=== PATIENT | male | born 1955 | race Caucasian/White ===

== ENCOUNTER 2025-06-18 15:55 | Emergency (ER) | payer MEDICARE, SELFPAY ==
[2025-06-18] VITALS (10 sets, daily range): BP systolic 140–184; BP diastolic 59–83; PULSE 66–77; RESP 15–20; TEMP 36.7; O2SAT 94–98; BMI 28.8
--- NOTE | 2025-06-18 16:12 | CT_ITS ---
PROCEDURE INFORMATION: Exam: CT Head Without Contrast Exam date and time: 06/18/2025 5:21 PM Age: 69 years old Clinical indication: Dizziness; Additional info: Dizziness, possible posterior circulation issue TECHNIQUE: Imaging protocol: Computed tomography of the head without contrast. Radiation optimization: All CT scans at this facility use at least one of these dose optimization techniques: automated exposure control; mA and/or kV adjustment per patient size (includes targeted exams where dose is matched to clinical indication); or iterative reconstruction. COMPARISON: CT ANGIO HEAD 06/18/2025 5:21 PM FINDINGS: Brain: No intraparenchymal hemorrhage. No subdural or epidural hematoma or fluid collection. Mild decreased density is present within the periventricular deep white matter. These changes are nonspecific and more in keeping with areas of chronic microvascular ischemic change. No evidence of a prior large territorial infarct. Mild decreased density is present within the posterior limb of the internal capsule on the right and left. Findings are somewhat nonspecific and may correspond to chronic microvascular ischemic change. Areas of slight asymmetric decreased density within the central left cerebellum. Findings may correspond to chronic microvascular ischemic change or potential area of subacute ischemia. Cerrato-white matter differentiation is relatively well-maintained. Cerebral ventricles: Ventricular and sulcal pattern within normal limits. Ventricles are midline in position. No mass effect or midline shift. There is mild prominence of the cerebellar folia which may correspond to mild cerebellar volume loss. Paranasal sinuses: Paranasal sinuses are clear. Mastoid air cells: Mastoid air cells are clear. Teeth: Partial visualization of multiple dental caries involving the posterior right and left maxillary molars. Bones: The calvarium is intact. No depressed or displaced skull fracture. Soft tissues: Small 4 mm metallic foreign body is present within the subcutaneous soft tissues superficial to the right frontal bone. Vasculature: No hyperdense MCA sign. Peripheral atherosclerotic plaque along the intracranial segment of the right and left internal carotid artery. IMPRESSION: 1. Area of slight decreased density within the central aspect of the left cerebellum is somewhat nonspecific. Findings could correspond to senescent change or microvascular ischemic change. Small area of subacute ischemia is not fully excluded. No other evidence of a large territorial infarct. No intraparenchymal hemorrhage. No subdural or epidural hematoma or fluid collection. No large mass or mass effect. 2. There is mild prominence of the cerebellar folia which may correspond to mild cerebellar volume loss. Ventricular and sulcal pattern is otherwise within normal limits. 3. Small 4 mm metallic foreign body is present within the subcutaneous soft tissues superficial to the right frontal bone. COMMENTS: THIS REPORT CONTAINS FINDINGS THAT MAY BE CRITICAL TO PATIENT CARE. The exam findings were verbally communicated by me to Steve Stanford via telephone conference at 5:54 PM EST on 06/18/2025. The findings were acknowledged and understood.
--- NOTE | 2025-06-18 16:12 | CT_ITS ---
PROCEDURE INFORMATION: Exam: CTA Head With Contrast, Arteriography Exam date and time: 06/18/2025 5:21 PM Age: 69 years old Clinical indication: Dizziness and giddiness; Additional info: Dizziness, possible posterior circulation issue TECHNIQUE: Imaging protocol: Computed tomographic angiography of the head with contrast. Exam focused on the arteries. 3D rendering (Not supervised by radiologist): MIP and/or 3D reconstructed images were created by the technologist. Radiation optimization: All CT scans at this facility use at least one of these dose optimization techniques: automated exposure control; mA and/or kV adjustment per patient size (includes targeted exams where dose is matched to clinical indication); or iterative reconstruction. Contrast material: ISOVUE 370; Contrast volume: 80 ml; Contrast route: INTRAVENOUS (IV); COMPARISON: CT HEAD/BRAIN WO CON 06/18/2025 5:21 PM FINDINGS: ANTERIOR CIRCULATION: Right internal carotid artery: Atherosclerotic changes are visualized of the right internal carotid artery, without significant intracranial stenosis or occlusion. Right middle cerebral artery: No occlusion or significant stenosis. No aneurysm. Right anterior cerebral artery: No occlusion or significant stenosis. No aneurysm. Left internal carotid artery: Atherosclerotic changes are visualized of the left internal carotid artery, with mild stenosis. Left middle cerebral artery: No occlusion or significant stenosis. No aneurysm. Left anterior cerebral artery: No occlusion or significant stenosis. No aneurysm. POSTERIOR CIRCULATION: Right vertebral artery: No occlusion or significant stenosis. No aneurysm. Left vertebral artery: No occlusion or significant stenosis. No aneurysm. Basilar artery: The basilar artery is small in caliber, without occlusion. No visualized aneurysm. Right posterior cerebral artery: Persistence of the origin of the right PLANIMETER OPERATOR, without significant stenosis or occlusion. 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 No significant stenosis or occlusion of the remaining left PLANIMETER OPERATOR. There is persistence of the origin of the PLANIMETER OPERATOR. Brain: There is mild prominence of sulci, compatible with atrophy. No intracranial mass effect is visualized. Refer to the head CT report from the same day. Cerebral ventricles: No ventriculomegaly. Orbital cavities: Bilateral orbital lens implants. Bones/joints: No acute fracture. Soft tissues: A small hyperdense foreign body is identified involving the right frontal scalp. IMPRESSION: 1. No large vessel arterial occlusion on this CTA head. 2. Atherosclerotic changes are visualized of the left internal carotid artery, with mild stenosis. 3. Additional findings described above.
--- NOTE | 2025-06-18 16:12 | CT_ITS ---
PROCEDURE INFORMATION: Exam: CTA Neck With Contrast Exam date and time: 06/18/2025 5:21 PM Age: 69 years old Clinical indication: Dizziness and giddiness; Additional info: Dizziness, possible posterior circulation issue TECHNIQUE: Imaging protocol: Computed tomographic angiography of the neck with contrast. Exam focused on the cervical segments of the vasculature. 3D rendering (Not supervised by radiologist): MIP and/or 3D reconstructed images were created by the technologist. Radiation optimization: All CT scans at this facility use at least one of these dose optimization techniques: automated exposure control; mA and/or kV adjustment per patient size (includes targeted exams where dose is matched to clinical indication); or iterative reconstruction. Contrast material: ISOVUE 370; Contrast volume: 80 ml; Contrast route: INTRAVENOUS (IV); COMPARISON: CT ANGIO NECK 06/18/2025 5:21 PM FINDINGS: Right common carotid artery: Atherosclerosis and noncalcified plaque are visualized involving the right common carotid artery.Artifact limits evaluation of the proximal right common carotid artery, without occlusion. No significant stenosis or occlusion of the remaining right common carotid artery. Right internal carotid artery: Atherosclerotic changes are visualized involving the proximal right internal carotid artery, with less than 50% stenosis. Right external carotid artery: No occlusion or significant stenosis. Left common carotid artery: Moderate stenosis of the proximal left common carotid artery, with atherosclerosis. Additional mild stenosis is identified of the proximal left common carotid artery. Peripheral heterogeneous density is identified of the proximal left common carotid artery. This can represent noncalcified plaque, although dissection cannot be excluded. Left internal carotid artery: Atherosclerotic changes are visualized of the proximal left internal carotid artery, with stenoses up to 65%. Left external carotid artery: No occlusion or significant stenosis. Right vertebral artery: Moderate to severe stenosis is visualized of the origin of the right vertebral artery. Peripheral hypodensity is identified within the proximal V1 segment, suggestive of noncalcified plaque. Thrombus or dissection cannot be excluded. Left vertebral artery: Severe stenosis is visualized at the origin of the left vertebral artery, with atherosclerosis. Brachiocephalic artery: There is mild stenosis of the brachiocephalic artery, with atherosclerosis. Right subclavian artery: Venous enhancement and artifact limit evaluation of the right subclavian artery. Mild stenosis is visualized of the proximal right subclavian artery, with atherosclerosis. There is additional mild stenosis distal to this finding of the right subclavian artery due to tortuosity of the vessel. Left subclavian artery: The left subclavian artery is patent, as visualized. Mild stenoses are visualized of the left subclavian artery. Atherosclerotic changes are seen. Aorta: Atherosclerosis of the aortic arch is visualized. Brain: For discussion of intracranial arteries, refer to the CTA head report from the same day. Teeth: Multiple teeth are absent. Soft tissues: No significant soft tissue swelling. Bones/joints: Straightening of the lordotic curvature of the cervical spine is visualized. There is grade 1 anterolisthesis of C4 on C5. Degenerative changes are visualized involving the cervical and upper thoracic spine. Varying degrees of spinal canal stenoses and neural foraminal narrowing are visualized at cervical levels. Artifact limits evaluation of the spinal canal. A defect is identified within the left side of the mandible, suggestive of a dental alveolus or erosion. Similar defects are identified involving the left side of the maxilla. Lungs: Emphysematous changes are visualized within the lungs bilaterally. Patchy increased interstitial markings are also seen within the lungs. IMPRESSION: 1. Moderate to severe stenosis is visualized of the origin of the right vertebral artery. Peripheral hypodensity is identified within the proximal V1 segment, suggestive of noncalcified plaque. Thrombus or dissection cannot be excluded. 2. Severe stenosis is visualized at the origin of the left vertebral artery. 3. Mild and moderate stenoses of the proximal left common carotid artery. Peripheral heterogeneous density is identified of the proximal left common carotid artery. This can represent noncalcified plaque, although dissection cannot be excluded. 4. Atherosclerotic changes are visualized of the proximal left internal carotid artery, with stenoses up to 65%. 5. Atherosclerotic changes are visualized involving the proximal right internal carotid artery, with less than 50% stenosis. 6. There is mild stenosis of the brachiocephalic artery. 7. Mild bilateral subclavian artery stenoses. 8. A defect is identified within the left side of the mandible, suggestive of a dental alveolus or erosion. Similar defects are identified involving the left side of the maxilla. Dental consultation is recommended, as clinically indicated. 9. Additional findings described above. REFERENCES: NASCET CRITERIA. The degree of stenosis in the cervical segment of the internal carotid artery is based on NASCET criteria. Normal is no stenosis. Mild is less than 50% stenosis. Moderate is 50-69% stenosis. Severe is 70% to 99% stenosis. Total occlusion is no detectable patent lumen.
--- NOTE | 2025-06-18 16:12 | XR_ITS ---
PROCEDURE INFORMATION: Exam: XR Chest Exam date and time: 06/18/2025 5:25 PM Age: 69 years old Clinical indication: Other: Dizziness TECHNIQUE: Imaging protocol: Radiologic exam of the chest. Views: 1 view. COMPARISON: CT ANGIO NECK 06/18/2025 5:21 PM FINDINGS: Lungs: Peripheral areas of patchy airspace opacity and slight interstitial prominence may correspond to underlying interstitial lung disease. This does not have the typical appearance of pneumonia. No focal dense airspace consolidation or mass. No CHF. Pleural spaces: No large pleural effusion. No pneumothorax. Heart/Mediastinum: Mild cardiomegaly. Bones/joints: Multilevel degenerative changes are present throughout the spine. No displaced rib fracture. IMPRESSION: Probable mild cardiomegaly. No CHF. Peripheral areas of patchy increased density within the right and left lung may correspond to overlapping densities or potential areas of underlying interstitial lung change. This does not have the typical appearance of a pneumonia. No pleural effusion. No pneumothorax.
--- NOTE | 2025-06-18 16:14 | HMH.EDGENADL ---
Discharge Plan Disposition Patient Disposition: Home, Self-Care Prescriptions Prescriptions: New clopidogrel [Plavix] 75 mg tablet 75 mg PO DAILY Qty: 30 0RF aspirin 81 mg capsule 81 mg PO DAILY Qty: 60 0RF atorvastatin [Lipitor] 80 mg tablet 80 mg PO DAILY Qty: 30 0RF Referrals Follow up/Referrals: Provider,Referral, [Primary Care Provider, Medical] - See instructions Activity Restrictions/Add. Instructions Additional Instructions/Restrictions: Your workup today showed narrowing of multiple arteries within your neck, including your vertebral arteries, carotid artery and brachiocephalic artery. There is also a dark area in the cerebellum of the brain that could be membership sales representative of an old stroke. Dr. Delacruz with the neurosurgery team at the [facility] recommended starting aspirin 81 mg daily. The [facility] neurology team also recommend starting Plavix 75 mg daily as well as atorvastatin 80 mg daily. They recommended obtaining an MRI on an outpatient basis to further evaluate the lesions mentioned above. After obtaining MRI, contact [facility] to establish care with the neurology team. The MRI can be obtained through a primary care doctor. I encourage you to contact the doctors listed to you to schedule an appointment with a primary care doctor and to obtain an MRI. The neurosurgery team at the [facility] is going to call you to schedule an appointment. If you receive a phone call from I number from an [phone] area code, answer it as this could be them trying to reach you. If you develop any new or worsening symptoms, such as facial drooping, weakness on one or both sides of her body, slurring speech, vision changes, difficulty walking, or any findings concerning for stroke, or if you become concerned for your help for any reason, return to the emergency department for evaluation. Clinical Impressions Clinical Impression: Dizziness, Stenosis of right vertebral artery, Stenosis of left vertebral artery, Left carotid artery stenosis, Atherosclerosis, Stenosis of brachiocephalic artery, Cerebellar lesion Print Language Print Language: Kiswahili Discharge ED Provider: Steve Stanford Adult [facility] General Chief complaint: Dizziness Stated complaint: Dizzy Spells Time Seen by Provider: 06/18/25 16:00 Mode of Arrival: Ambulatory Source of Information: Patient Description of Symptoms (Recalled from ER Triage Doc. by RN): Pt presents for evaluation of dizziness that started this AM. Pt states it is worse with movement. Then he was at the dentist office this afternoon and began to have another episode of dizziness when he we went to get up. History of Present Illness HPI narrative: Jeffrey Chand is a 69y male with a history of high blood pressure who presents to the emergency department for intermittent episodes of room spinning/dizziness. Patient states that over the last several years he has had intermittent episodes of positional dizziness but states that he had multiple teeth pulled by his dentist 8 days ago and has been on amoxicillin ever since. He states that this morning, when he woke up, he lifted his head off the pillow and had approximately 20 seconds of severe room spinning/dizziness. He then rolled over on his right side and had recurrence of the dizziness. He states that he has not had any falls or difficulty walking. He does state that intermittently he will have a lot of wax buildup in his ear and he cleans it out with peroxide and sometimes will have dizziness after this but has not done this within the last couple weeks. He denies any chest pain, shortness of breath, vomiting, abdominal pain, fever. He denies any weakness or numbness. Related Data Previous Rx's ?Medication ?Instructions ?Recorded aspirin 81 mg capsule 81 mg PO DAILY #60 caps 06/18/25 atorvastatin 80 mg tablet (Lipitor) 80 mg PO DAILY #30 tabs 06/18/25 clopidogrel 75 mg tablet (Plavix) 75 mg PO DAILY #30 tabs 06/18/25 Allergies Allergy/AdvReac Type Severity Reaction Status Date / Time No Known Allergies Allergy Verified 06/18/25 16:15 [facility] Disclaimer: The information contained in this section may have been updated after the patient was seen, as this information can be updated by other users. Social History Smoking Status: Never smoker alcohol intake: never current occupational status: previously employed Travel in the last 8 weeks?: None ROS Obtained: Yes Systems reviewed as appropriate & no additional complaints except as documented Physical Exam General General appearance: alert and in no apparent distress Head Head exam: atraumatic Eye Eye exam: Present normal appearance, PERRL and EOMI ENT ENT exam: Present normal external ear exam Neck Neck exam: Present full ROM Chest Chest inspection: Present symmetric chest wall rise Respiratory Respiratory exam: Present normal lung sounds bilaterally; Absent respiratory distress, wheezes or stridor Cardiovascular Cardiovascular exam: Present regular rate and normal rhythm Abdominal Exam Abdominal exam: Present soft; Absent distention, tenderness, guarding or rebound exam: Present deferred Extremities Exam Extremities exam: Present normal inspection Back Exam Back exam: Present normal inspection Neurological Exam Neurological exam: Present alert, oriented X3, CN II-XII intact and other; Absent motor sensory deficit Expanded Neurological Exam Cranial nerves: Normal: EOM function (II, III, IV, ), facial sensation (V), facial palsy (VII), gag reflex (IX), spinal accessory function (XI) and tongue deviation (XII) Cerebellar function: Normal: finger to nose and heel to miller Motor strength - LUE: 5/5 Motor strength - RUE: 5/5 Motor strength - LLE: 5/5 Motor strength - RLE: 5/5 Psychiatric Psychiatric exam: Present normal affect Skin Skin exam: Present warm and dry Medical Decision Making Medical Records Screening: Per USPSTF and CDC recommendations, given the prevalence of disease in our region, it is our hospital?s policy to screen for HIV and viral Hepatitis for all patients aged 18 and over and those with ongoing risk factors. Mehdi Inquiry Pt receiving controlled substance: No Vital Signs: 06/18/25 15:59 06/18/25 16:05 06/18/25 16:15 Temperature 98.0 F Temperature Source Oral Pulse Rate 72 77 Pulse Rate [Right] 71 Respiratory Rate 18 Blood Pressure 175/73 H 143/83 H Blood Pressure [Right Radial Artery] 175/73 H Blood Pressure Mean 91 90 Blood Pressure Mean [Right Radial Artery] 107 Blood Pressure Source Blood Pressure Source [Right Radial Artery] Automatic Cuff Blood Pressure Position Blood Pressure Position [Right Radial Artery] Sitting 02 Sat by Pulse Oximetry 94 L 96 97 Oxygen Delivery Method Room Air 06/18/25 16:30 06/18/25 16:38 06/18/25 16:45 Temperature Temperature Source Pulse Rate 69 74 69 Pulse Rate [Right] Respiratory Rate 16 16 15 Blood Pressure 167/76 H 184/72 H 153/67 H Blood Pressure [Right Radial Artery] Blood Pressure Mean Blood Pressure Mean [Right Radial Artery] Blood Pressure Source Blood Pressure Source [Right Radial Artery] Blood Pressure Position Blood Pressure Position [Right Radial Artery] 02 Sat by Pulse Oximetry 98 98 98 Oxygen Delivery Method 06/18/25 16:46 06/18/25 17:00 06/18/25 17:15 Temperature Temperature Source Pulse Rate 66 70 66 Pulse Rate [Right] Respiratory Rate 17 20 18 Blood Pressure 153/67 H 144/59 H 140/63 Blood Pressure [Right Radial Artery] Blood Pressure Mean Blood Pressure Mean [Right Radial Artery] Blood Pressure Source Blood Pressure Source [Right Radial Artery] Blood Pressure Position Blood Pressure Position [Right Radial Artery] 02 Sat by Pulse Oximetry 98 98 97 Oxygen Delivery Method Room Air 06/18/25 19:11 Temperature 98.0 F Temperature Source Oral Pulse Rate 66 Pulse Rate [Right] Respiratory Rate 18 Blood Pressure 140/63 Blood Pressure [Right Radial Artery] Blood Pressure Mean Blood Pressure Mean [Right Radial Artery] Blood Pressure Source Automatic Cuff Blood Pressure Source [Right Radial Artery] Blood Pressure Position Sitting Blood Pressure Position [Right Radial Artery] 02 Sat by Pulse Oximetry Oxygen Delivery Method Room Air Lab Data Lab Results 06/18/25 16:02: WBC 13.8 H, RBC 4.86, Hgb 14.9, Hct 43.1, MCV 88.7, MCH 30.7, MCHC 34.6, RDW 12.2, Plt Count 287, MPV 9.5, Neut % (Auto) 74.4, Lymph % (Auto) 18.2, [place] % (Auto) 5.2, Eos % (Auto) 0.9, Baso % (Auto) 0.7, Neut # (Auto) 10.2 H, Lymph # (Auto) 2.5, [place] # (Auto) 0.7, Eos # (Auto) 0.1, Baso # (Auto) 0.1, PT 10.6, INR 0.95, APTT 24.7, Sodium 140, Potassium 4.1, Chloride 99, Carbon Dioxide 31 H, Anion Gap 14.1, BUN 26 H, Creatinine 1.10, Estimated Creat Clear 77, Estimated GFR 66, Est GFR ( Amer) 80, Glucose 119 H, Calcium 9.2, Total Bilirubin 0.7, AST 31, ALT 22, Alkaline Phosphatase 60, Troponin I < 0.01, NT-Pro-B Natriuret Pep 52.9, Total Protein 7.8, Albumin 5.2 H, Globulin 2.6, Albumin/Globulin Ratio 2.0 H 06/18/25 16:39: Urine Color Yellow, Urine Appearance Clear, Urine pH 6.0, Ur Specific [place] 1.015, Urine Protein Negative, Urine Glucose (UA) Negative, Urine Ketones Negative, Urine Blood Negative, Urine Nitrate Negative, Urine Bilirubin Negative, Urine Urobilinogen 0.2, Ur Leukocyte Esterase Negative, Urine RBC 3-5, Urine WBC Occasional, Urine Bacteria 1+, Urine Mucus 1+ 06/18/25 16:02 06/18/25 16:02 Orders (Tests/Meds): ED MEDICATIONS Discontinued Medications Generic Name Dose Route Start Last Admin Trade Name Freq PRN Reason Stop Dose Admin Iopamidol 80 ml 06/18/25 17:31 06/18/25 17:32 Iopamidol-370 (76%);100ml Bottle IV 06/18/25 17:32 80 ml ONCE ONE Administration Meclizine HCl 25 mg 06/18/25 16:12 06/18/25 16:36 Meclizine 25mg Tablet PO 06/18/25 16:13 25 mg ONCE ONE Administration Sodium Chloride 10 ml 06/18/25 17:31 06/18/25 17:32 Sodium Chloride 0.9% 10ml Syr (Rad Only) IV 06/18/25 17:32 10 ml ONCE ONE Administration Sodium Chloride 50 ml 06/18/25 17:31 06/18/25 17:32 0.9 % Sodium Chloride 50 Ml Vial IV 06/18/25 17:32 50 ml ONCE ONE Administration ORDERS Category Date Time Status CT angio head Stat Cat Scan 06/18/25 16:[address] angio neck Stat Cat Scan 06/18/25 16:[address] head/brain wo con Stat Cat Scan 06/18/25 16:12 Completed CXR --portable [XR chest portable] Stat Exams 06/18/25 16:12 Completed BNP [NT Pro Brain Natriuretic Pep.] Stat Lab 06/18/25 16:02 Completed CBC w/Auto Diff [Complete Blood Count Auto Diff] Stat Lab 06/18/25 16:02 Completed CMP [Comprehensive Metabolic Panel] Stat Lab 06/18/25 16:02 Completed PT INR [Prothrombin Time INR] Stat Lab 06/18/25 16:02 Completed PTT [Activated Partial Thrombo Time] Stat Lab 06/18/25 16:02 Completed Trop I [Troponin I] Stat Lab 06/18/25 16:02 Completed UA [Urinalysis and Microscopic] Stat Lab 06/18/25 16:39 Completed ECG Data Tracing #1: I reviewed this ECG and interpreted as documented below: Normal sinus rhythm. No ST elevation or depression. Normal CA interval. QTc normal at 408 Medical Decision Narrative: Jeffrey Chand is a 69y male with a history of high blood pressure who presents to the emergency department for intermittent episodes of room spinning/dizziness. Patient states that over the last several years he has had intermittent episodes of positional dizziness but states that he had multiple teeth pulled by his dentist 8 days ago and has been on amoxicillin ever since. He states that this morning, when he woke up, he lifted his head off the pillow and had approximately 20 seconds of severe room spinning/dizziness. He then rolled over on his right side and had recurrence of the dizziness. He states that he has not had any falls or difficulty walking. He does state that intermittently he will have a lot of wax buildup in his ear and he cleans it out with peroxide and sometimes will have dizziness after this but has not done this within the last couple weeks. He denies any chest pain, shortness of breath, vomiting, abdominal pain, fever. He denies any weakness or numbness. He denies any blurry vision or double vision. On arrival, patient is hypertensive with blood pressure 175/73, heart rate within normal limits, breathing comfortably on room air with oxygen saturation 96% SpO2. Afebrile. Physical exam, as stated above, revealed an overall well-appearing male in no distress. Physical exam, as stated above, revealed normal cardiopulmonary exam. Abdomen soft, nontender nondistended. Pupils equal round and reactive to light. Extraocular movements intact. 5 out of 5 strength and sensation in the bilateral upper and lower extremities. [id number]-[id number] testing is normal. Finger-nose testing is normal. Rapid alternating movements are normal. Cranial nerves II through XII are intact. Patient has no focal neurological deficits Differential diagnosis includes, but is not limited to: Peripheral causes of vertigo such as BPPV, M?ni?re's disease, labyrinthitis. Less likely to be central cause of vertigo such as posterior circulation stroke given positional nature of patient's symptoms and reassuring neurological exam, but still within the realm of possibility. Cardiac etiology such as cardiac arrhythmia, electrolyte derangement, among others. The most morbid conditions were considered and workup was based on these. Workup in the emergency department included: CTA of the head and neck, CT head without contrast, CBC, CMP, chest x-ray, EKG, troponin, BNP, PTT, PT/INR, urinalysis. Patient was given 25 mg of oral meclizine. EKG without evidence of ischemia or CA shortening or QTc prolongation. See interpretation above. Mild leukocytosis with white blood cell count of 13.8, no neutrophilia. No anemia. Platelets within normal limits. Coagulation studies unremarkable. Electrolytes within normal limits. BUN mildly elevated 26 but no SILVIA. Liver enzymes and bilirubin within normal limits. Initial troponin less than 0.01. NT proBNP normal at 52.9. Urinalysis without evidence of infection. Chest x-ray interpreted by me personally. Per radiology, there is no focal consolidation to suggest pneumonia but there are potential areas of underlying interstitial lung changes. CT imaging of the head interpreted by me personally prior to official radiology read. No intracranial hemorrhage, mass or midline shift. Per radiology there is area of slight decreased density within the central aspect of the left cerebellum is somewhat nonspecific. Findings could correspond to senescent change or microvascular ischemic change. Small area of subacute ischemia is not fully excluded. No other evidence of a large territorial infarct. No intraparenchymal hemorrhage. No subdural or epidural hematoma or fluid collection. No large mass or mass effect. There is mild prominence of the cerebellar folia which may correspond to mild cerebellar volume loss. Ventricular and sulcal pattern is otherwise within normal limits. Small 4 mm metallic foreign bodies present within subcutaneous tissues superficial to the right frontal bone . CTAs demonstrated moderate to severe stenosis at the origin of the right vertebral artery. Peripheral hypodensities identified within the proximal V1 segment, suggestive of noncalcified plaque. Thrombus or dissection cannot be excluded. Severe stenosis at the origin of the left vertebral artery. Mild and moderate stenosis of the left proximal. Favored to be noncalcified plaque although dissection cannot be excluded. Atherosclerotic changes are visualized of the proximal left internal carotid artery with stenosis up to 65%. Atherosclerotic changes are visualized involving the proximal right internal carotid artery, with less than 50% stenosis. There is mild stenosis of the brachiocephalic artery. Mild bilateral subclavian artery stenosis. Dental avulsion and erosion. Due to these findings, feel that patient would benefit from neurosurgery recommendations. I did discuss patient's case with Dr. Gutiérrez at the [facility] who said that he will speak with neurosurgery and will follow-up. I spoke with Dr. Delacruz with the neurosurgery team who recommended starting aspirin 81 mg daily for areas of possible dissection versus critical stenosis. Recommended outpatient follow-up and no further interventions at this time. I also discussed patient's case with Dr. Goins who recommended starting Plavix 75 mg daily as well as high intensity statin. Also recommended outpatient MRI and follow-up with neurology once those results are obtained. They agree that symptoms sound more consistent with peripheral etiology rather than central given the intermittent and positional nature of the dizziness. On reassessment, patient remains in stable condition. He has no recurrence of his symptoms at this time. I discussed these findings with him and recommended starting the medications listed above. Will send prescription for aspirin, Plavix and atorvastatin. I encouraged him to follow-up with primary care for MRI on an outpatient basis. I give the patient strict return precautions for any worsening symptoms that could be indicative of an acute stroke. All questions were answered. He demonstrated understanding and was in agreement with this plan. He was then discharged from the emergency department in stable condition. Critical Care Critical Care Time Critical Care Time: No
[2025-06-18 16:18] LABS: Hematocrit 43.1 % (42.0-52.0); Hemoglobin 14.9 g/dL (14.1-18.0); Immature Granulocytes % 0.6 %; Mean Corpuscular HGB Conc 34.6 g/dL (31.8-35.4); Mean Corpuscular Hemoglobin 30.7 pg (27.0-31.2); Mean Corpuscular Volume 88.7 fl (80-94); Nucleated Red Blood Cells % 0 %; Platelet Count 287 K/mm3 (142-424); Red Blood Count 4.86 M/mm3 (4.60-6.20); Red Cell Distribution Width-SD 39.7 fL; White Blood Count 13.8 K/mm3 (4.8-10.8)
--- NOTE | 2025-06-18 16:19 | ECG_ITS ---
APPROVED REPORT Exam: Resting ECG HR:68 bpm ECG Measurements Heart Rate 68 AXES GA 157 P 69 QRSd 90 QRS 67 QT 391 T 75 QTc 408 Conclusion SINUS RHYTHM NORMAL ECG UNCONFIRMED REPORT Normal sinus rhythm. No ST elevation or depression. QTc normal at 408 Electronically signed by : BETTY HAMILTON, 06/18/2025 20:09:53
[2025-06-18 16:23] LABS: Albumin Level 5.2 g/dl (3.5-5.0); Chloride 99 mmol/L (98-107); Potassium 4.1 mmoL/L (3.5-5.1); Sodium 140 mmol/L (136-145)
[2025-06-18 16:26] LABS: Activated Partial Thrombo Time 24.7 seconds (22.8-30.6); Alanine Aminotransferase 22 U/L (12-78); Albumin/Globulin Ratio 2.0 (1.1-1.8); Alkaline Phosphatase 60 U/L (38-126); Anion Gap 14.1 mEq/L (5-15); Aspartate Amino Transferase 31 U/L (17-59); Bilirubin,Total 0.7 mg/dl (0.2-1.3); Blood Urea Nitrogen 26 mg/dl (9-20); Calcium 9.2 mg/dl (8.4-10.2); Carbon Dioxide 31 mmol/L (22.0-30.0); Creatinine Clearance Estimated 77 mL/min (50-200); Creatinine,Serum 1.10 mg/dl (0.66-1.25); Estimated Glomerular Filt Rate 66 ml/min (>60); GFR (African American) 80 ML/MIN (>60); Globulin 2.6 g/dL (1.3-3.2); Glucose 119 mg/dl (74-100); INR 0.95 (0.9-1.1); Prothrombin Time 10.6 seconds (10.1-12.5); Total Protein,Serum 7.8 g/dl (6.3-8.2)
[2025-06-18 16:35] LABS: NT Pro Brain Natriuretic Pep. 52.9 pg/mL (0-125)
[2025-06-18] MEDS: MECLIZINE 25MG TABLET 25 MG PO (16:36)
[2025-06-18 16:39] LABS: Troponin I < 0.01 ng/ml (0.00-0.034)
[2025-06-18 16:44] LABS: Microscopic, Urine URINE MICROSCOPIC (MICROSCOPIC)
[2025-06-18 16:48] LABS: Bilirubin,Urine Negative (Negative); Color,Urine YELLOW (Yellow); Glucose,Urine (UA) Negative (Negative); Ketones,Urine Negative (Negative); Leukocyte Esterase,Urine Negative (Negative); PH,Urine 6.0 (5.0-8.5); Protein,Urine Negative (Negative); Specific Gravity, Urine 1.015 (1.005-1.030); Urobilinogen,Urine 0.2 EU/dl (0.2)
[2025-06-18 17:27] LABS: WBC,Urine Occasional #/hpf (0-3)
[2025-06-18 17:28] LABS: Bacteria,Urine 1+ /lpf; Mucus,Urine 1+ /lpf
[2025-06-18] MEDS: IOPAMIDOL-370 (76%);100ML BOTTLE 80 ML IV (17:32)
[2025-06-18] MEDS: SODIUM CHLORIDE 0.9% 10ML SYR (RAD ONLY) 10 ML IV (17:32)
[2025-06-18] MEDS: 0.9 % SODIUM CHLORIDE 50 ML VIAL IV (17:32)
--- NOTE | 2025-06-18 18:27 | PC.NURSE ---
dr shankar speaking with [facility]
--- NOTE | 2025-06-18 18:32 | PC.NURSE ---
Call out to [facility]
--- NOTE | 2025-06-18 18:37 | PC.NURSE ---
Dr. Stanford speaking with [facility]
--- NOTE | 2025-06-18 18:48 | PC.NURSE ---
Dr. Stanford speaking with [facility] again at this time
== END 2025-06-18 19:30 | disposition home or self-care (01) ==
PROVIDERS: Emergency Provider Student in an Organized Health Care Education/Training Program
DX: R42 Dizziness and giddiness (principal); G93.9 Disorder of brain, unspecified; I77.1 Stricture of artery; I65.22 Occlusion and stenosis of left carotid artery; I10 Essential (primary) hypertension; I65.03 Occlusion and stenosis of bilateral vertebral arteries
CPT/HCPCS: 70450; 70496; 70498; 71045; 80053; 81001; 83880; 84484; 85025; 85610; 85730; 93005; 99285; Q9967

== ENCOUNTER 2025-06-23 09:24 | Outpatient (CLI) | payer MEDICARE, SELFPAY ==
--- OUTSIDE RECORDS SUMMARY | 2025-06-23 09:29 | XMS_ITS | Clinical Summary ---
Author Organization Healthcare Address [address] [place] [address] Care Team Providers Care Depilatory Painter Name Role Phone Shahla Reynoso DONALD Primary Care Provider [phone] Encounters Date Type Department Care Team Description 06/19/2025 Telephone [facility] [address] [place] [address] Jayden Delacruz MD 06/18/2025 Orders Only External Location [address] [place] [address] Provider, External 06/18/2025 Orders Only External Location [address] [place] [address] Provider, External 06/18/2025 Orders Only External Location [address] [place] [address] Provider, External 06/18/2025 Orders Only External Location [address] [place] [address] Provider, External from Last 3 Months Social History Tobacco Use Types Packs/Day Years Used Date Smoking Tobacco: Never Assessed Sex and Gender Information Value Date Recorded Sex Assigned at Not on file Legal Sex Male 6:34 PM EST Gender Identity Not on file Sexual Orientation Not on file Last Filed Vital Signs Vital Sign Reading Time Taken Comments Blood Pressure 140/63 06/18/2025 6:41 PM EST Pulse 66 06/18/2025 6:41 PM EST Temperature 36.7 C (98 F) 06/18/2025 6:41 PM EST Respiratory Rate 18 06/18/2025 6:41 PM EST Oxygen Saturation 97% 06/18/2025 6:41 PM EST RA Inhaled Oxygen Concentration - - Weight - - Height - - Body Mass Index - - Plan of Treatment Upcoming Encounters Date Type Department Care Team (Late st Contact Info) Description 06/24/2025 2:00 PM EST Consult [place] [facility] [address] [place] [address] Jayden Delacruz MD [address] [place] [address] Health Maintenance Due Date Last Done Comments [facility]-Depression Screening 1955 [facility]-Hepatitis C Screening 1955 [facility]-Medicare Annual Wellness (AWV) 1955 [facility]-/Child/Adol SDOH Screenings 1955 [facility]- SDOH Screenings 1971 [facility]-Adult SDOH Screenings 1971 CT Colonography 1998 Colonoscopy 1998 FIT-DNA 1998 FIT 1998 FOBT 1998 Sigmoidoscopy 1998 [facility]-Colorectal Cancer Screening 1998 [facility]-Zoster Vaccines (2 of 3) 08/10/2014 06/15/2014 [facility]-Pneumococcal Vaccine: 50+ Years (2 of 2 - PCV20 or PCV21) 06/03/2016 06/03/2015 [id number] Vaccine ( - season) 2025 05/06/2023, 04/21/2022, 07/08/2021, Additional history exists [facility]-DTaP,Tdap,and Td Vaccines (2 - Td or Tdap) 06/03/2025 06/03/2015 [facility]-RSV Vaccine: 60+ Years or (1 - 1-dose 75+ series) 2028 [facility]-Influenza Vaccine Completed 04/20/2025 , 05/27/2024, 05/06/2023, Additional history exists HPV Vaccines Aged Out No longer eligi ble based on patient's age to complete this topic [facility]-HIB Vaccines Aged Out No longer e ligible based on patient's age to complete this topic [facility]-Hepatitis A Vaccines Aged Out No longer eligible based on patient's age to complete this topic [facility]-IPV Vaccines Aged Out No longer e ligible based on patient's age to complete this topic [facility]-Rotavirus Vaccines Aged Out No lo nger eligible based on patient's age to complete this topic Procedures Procedure Name Priority Date/Time Associated Diagnosis Comments XR OUTSIDE IMAGES 06/18/2025 5:[address] OUTSIDE IMAGES 06/18/2025 5:[address] NEURO OUTSIDE IMAGES 06/18/2025 5:[address] NEURO OUTSIDE IMAGES 06/18/2025 5:21 PM EST from Last 3 Months Results * XR OUTSIDE IMAGES (06/18/2025 5:25 PM EST) Anatomical Region Laterality Modality Radiographic Yolis ging 06/18/2025 5:25 PM EST us External Provider IMG XR PROCEDURES Edited Resul t - Final * CT OUTSIDE IMAGES (06/18/2025 5:21 PM EST) Anatomical Region Laterality Modality Computed Tomogra phy 06/18/2025 5:21 PM EST us External Provider IMG CT PROCEDURES Edited Resul t - Final * CT NEURO OUTSIDE IMAGES (06/18/2025 5:21 PM EST) Only the most recent of2 resultswithin the time period is included. Anatomical Region Laterality Modality Computed Tomogra phy 06/18/2025 5:21 PM EST us External Provider IMG CT PROCEDURES Edited Resul t - Final from Last 3 Months Insurance [address] [place] [id number] [employer] MED[employer] Care Teams Depilatory Painter Relationship Specialty Start Date End Date Shahla Reynoso, DONALD [address] [place] [address] PCP - General 06/19/25
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
--- OUTSIDE RECORDS SUMMARY | 2025-06-23 09:29 | XMS_ITS | Encounter Summary ---
Author Organization Healthcare Address [address] [place] [address] Care Team Providers Care Tow Bar Driver Name Role Phone Shahla Reynoso HEALTH SOCIAL WORK PROFESSOR Primary Care Provider Encounter Details Date Type Department Care Team (Late st Contact Info) Description 06/18/2025 Orders Only External Location [address] [place] [id number] Provider, External Social History Tobacco Use Types Packs/Day Years Used Date Smoking Tobacco: Never Assessed Sex and Gender Information Value Date Recorded Sex Assigned at Not on file Legal Sex Male 6:34 PM EST Gender Identity Not on file Sexual Orientation Not on file documented as of this encounter Plan of Treatment Upcoming Encounters Date Type Department Care Team (Late st Contact Info) Description 06/24/2025 2:00 PM EST Consult [place] [facility] [address] [place] [address] Jayden Delacruz MD [address] [place] [address] documented as of this encounter Procedures Procedure Name Priority Date/Time Associated Diagnosis Comments CT NEURO OUTSIDE IMAGES 06/18/2025 5:21 PM EST documented in this encounter Results * CT NEURO OUTSIDE IMAGES (06/18/2025 5:21 PM EST) Anatomical Region Laterality Modality Computed Tomogra phy 06/18/2025 5:21 PM EST us External Provider IMG CT PROCEDURES Edited Resul t - Final documented in this encounter Visit Diagnoses Not on filedocumented in this encounter Care Teams Tow Bar Driver Relationship Specialty Start Date End Date Shahla Reynoso APRN [address] [place] [id number] PCP - General 06/19/25 documented as of this encounter
--- OUTSIDE RECORDS SUMMARY | 2025-06-23 09:29 | XMS_ITS | Encounter Summary ---
Author Organization Healthcare Address [address] [place] [address] Care Team Providers Care Mail Superintendent Name Role Phone Shahla Reynoso DONALD Primary Care Provider [phone] Encounter Details Date Type Department Care Team (Late st Contact Info) Description 06/19/2025 Telephone [place] [facility] [address] [place] [address] Jayden Delacruz MD [address] [place] [address] Social History Tobacco Use Types Packs/Day Years Used Date Smoking Tobacco: Never Assessed Sex and Gender Information Value Date Recorded Sex Assigned at Not on file Legal Sex Male 6:34 PM EST Gender Identity Not on file Sexual Orientation Not on file documented as of this encounter Miscellaneous Notes * Telephone Encounter - Damon Harris - 06/19/2025 4:14 PM EST Patient Phone Message Reason for Call: Patient calling to r/s appt, needing in the afternoon if possible Best contact number and optimal time of day to reach caller: [phone] Note: Please do not reply to this message. Follow-up communication and further actions as a result of this message need to be communicated with the patient directly, if the patient is not active onMyChart. If the patient is active on MyChart, they will receive notification of the communication/outcome via MyChart. documented in this encounter Plan of Treatment Upcoming Encounters Date Type Department Care Team (Late st Contact Info) Description 06/24/2025 2:00 PM EST Consult [place] [facility] [address] [place] [address] Jayden Delacruz MD [address] [place] [address] documented as of this encounter Visit Diagnoses Not on filedocumented in this encounter Care Teams Mail Superintendent Relationship Specialty Start Date End Date Shahla Reynoso APRN [address] [place] [address] PCP - General 06/19/25 documented as of this encounter
--- OUTSIDE RECORDS SUMMARY | 2025-06-23 09:29 | XMS_ITS | Encounter Summary ---
Author Organization Healthcare Address [address] [place] [address] Care Team Providers Care Casino Runner Name Role Phone Shahla Reynoso ROOFER ASSISTANT Primary Care Provider [phone] Encounter Details Date Type Department Care Team (Late st Contact Info) Description 06/18/2025 Orders Only External Location [address] [place] [phone] Provider, External Social History Tobacco Use Types [...] Info) Description 06/24/2025 2:00 PM EST Consult [place] [facility] [address] [place] [address] Jayden Delacruz MD [address] [place] [address] documented as of this encounter Procedures Procedure Name Priority Date/Time Associated Diagnosis Comments CT OUTSIDE IMAGES 06/18/2025 5:21 PM EST documented in this encounter Results * CT OUTSIDE IMAGES (06/18/2025 5:21 PM EST) Anatomical Region Laterality Modality Computed Tomogra phy 06/18/2025 5:21 PM EST us External Provider IMG CT PROCEDURES Edited Resul t - Final documented in this encounter Visit Diagnoses Not on filedocumented in this encounter Care Teams Casino Runner Relationship Specialty Start Date End Date Shahla Reynoso, DONALD [address] [place], [place] [id number] PCP - General 06/19/25 documented as of this encounter
--- OUTSIDE RECORDS SUMMARY | 2025-06-23 09:29 | XMS_ITS | Encounter Summary ---
Author Organization Healthcare Address [address] [place] [address] Care Team Providers Care Electronic Warfare Technician Name Role Phone Shahla Reynoso NAPHTHALENE STILL OPERATOR Primary Care Provider Encounter Details Date Type Department Care Team (Late st Contact Info) Description 06/18/2025 Orders Only External Location [address] [place] [phone] Provider, External Social History Tobacco Use Types [...] Info) Description 06/24/2025 2:00 PM EST Consult [place] [facility] [address], [address] [place] [address] Jayden Delacruz MD [address] [place] [address] documented as of this encounter Procedures Procedure Name Priority Date/Time Associated Diagnosis Comments XR OUTSIDE IMAGES 06/18/2025 5:25 PM EST documented in this encounter Results * XR OUTSIDE IMAGES (06/18/2025 5:25 PM EST) Anatomical Region Laterality Modality Radiographic Yolis ging 06/18/2025 5:25 PM EST us External Provider IMG XR PROCEDURES Edited Resul t - Final documented in this encounter Visit Diagnoses Not on filedocumented in this encounter Care Teams Electronic Warfare Technician Relationship Specialty Start Date End Date Shahla Reynoso, DONALD [address] [place] [address] PCP - General 06/19/25 documented as of this encounter
--- OUTSIDE RECORDS SUMMARY | 2025-06-23 09:30 | XMS_ITS | Clinical Summary ---
Author Organization [facility] Address [address] [place] [address] Phone Care Team Providers Care Research Laboratory Technician Name Role Phone Unavailable Primary Care Provider Unavailabl e Allergies Active Allergy Reactions Criticality Noted Date Comments Diphenhydramine Hcl Other (See Comments) Low 2013 Pt states that he was given Benadryl after a procedure at dentist, and had a hard time waking him up Medications GLUC MELGOZA/CHONDRO MELGOZA A/VIT C/MN (GLUCOSAMINE 1500 COMPLEX ORAL) Take by mouth daily. Active lisinopril 10 mg Tab 10 mg, hydroCHLOROthiazide 25 mg Tab 12.5 mg Take 1 Tab by mouth daily. Active sildenafil (VIAGRA) 100 mg Oral Tablet TAKE 1 TABLET BY MOUTH NEEDED FOR ERECTILE DYSFUNCTION 30 Tab 4 019 Active lisinopriL-hydrochloro thiazide (PRINZIDE;ZESTORETIC) 10-12.5 mg Oral Tablet TAKE ONE TABLET BY MOUTH DAILY 15 Tab 020 Active albuterol (PROAIR HFA) 90 mcg/actuation Inhl HFA Aerosol InhalerIndications:COV ID-19 virus infection Inhale 2 Puffs into the lungs every 6 hours as needed for Wheezing or Shortness of Breath. 1 Inhaler 2 021 Active atorvastatin (LIPITOR) 20 mg Oral Tablet Take 20 mg by mouth daily. Active fish oil omega 3-dha-epa 300-1,000 mg Oral Capsule, Delayed Release(E.C.) Take 2 g by mouth daily. Active methylPREDNISolone (MEDROL DOSPACK) 4 mg Oral Tablets, Dose Pack follow package directions 21 Tablet 022 Active Additional Information Patient not taking.Reason: Therapy Completed, Reported on 10/03/2024 sodium,potassium,mag sulfates (SUPREP BOWEL PREP KIT) 17.5-3.13-1.6 gram Oral Recon SolnIndications:Screen ing for colon cancer Take 1 kit per physician instructions 354 mL Active Additional Information Patient not taking.Reason: Therapy Completed, Reported on 10/03/2024 methylPREDNISolone (MEDROL DOSPACK) 4 mg Oral Tablets, Dose PackIndications:Acute pain of left shoulder,Sprain of left shoulder, unspecified shoulder sprain type, initial encounter,Arthropathy of left shoulder,Impingement syndrome of left shoulder follow package directions 21 Tablet 024 Active Additional Information Patient not taking.Reason: Therapy Completed, Reported on 10/03/2024 diclofenac (VOLTAREN) 75 mg Oral Tablet, Delayed Release (E.C.)Indications:Impi ngement syndrome of left shoulder Take 1 Tablet by mouth 2 times daily. 30 Tablet 024 Active Active Problems Problem Noted Date Diagnosed Date Amblyopia, right eye 10/03/2024 Impingement syndrome of left shoulder 01/30/2022 Rotator cuff tendonitis, left 01/30/2022 BPH without urinary obstruction 07/16/2015 Essential hypertension 07/05/2015 HLD (hyperlipidemia) 11/18/2013 Resolved Problems Problem Noted Date Diagnosed Date Resolved Date Mixed type age-related cataract, both eyes 05/10/2017 07/12/2017 Umbilical hernia without obs truction and without gangrene 01/15/2017 06/12/2017 HTN (hypertension) 11/18/2013 5 Immunizations Immunization Administration Dates Next Due Influenza Vaccine, Unspecified Formulation 05/18,06/08/2016,06/08/2014 Pfizer SARS-CoV-2 Vaccine 12 + Yrs (Purple Cap) 12/29/2020,12/08/2020 Pneumococcal Conjugate Vaccine 13 Valent 015 Tdap 06/03/2015 Zoster 06/15/2014 Surgical History Surgery Date Site/Laterality Comments COLONOSCOPY 08/13/2005 - 08/12/2006 UMBILICAL HERNIA REPAIR 03/01/2017 N/A UMBILICAL HERNIA REPAIR WITH MESH; Surgeon: Robert Escoto MD; Location: [facility]; Service: General Medical devices from this surgery are in the Medical Devices section. WISDOM TOOTH EXTRACTION wisdom teeth CATARACT REMOVAL 06/13/2017 Right Right CATARACT EXTRACTION WITH PHACOEMULSIFICATION AND INTRAOCULAR LENS; Surgeon: Anthony Welch MD; Location: [facility]; Service: Ophthalmology Medical devices from this surgery are in the Medical Devices section. CATARACT REMOVAL 06/27/2017 Left Left CATARACT EXTRACTION WITH PHACOEMULSIFICATION AND INTRAOCULAR LENS; Surgeon: Anthony Welch MD; Location: [facility]; Service: Ophthalmology Medical devices from this surgery are in the Medical Devices section. Medical History Medical History Date Comments Hypertension Hyperlipidemia Arthritis finger Prostate disorder enlarged Anesthesia hard to wake aft er dental surgery Umbilical hernia without obs truction and without gangrene 01/15/2017 Family History Medical History Relation Name Comments Diabetes Brother Hypertension Brother Dementia Father Emphysema Father Breast Cancer Mother Cataracts Mother Diabetes Mother Heart Failure Mother Hypertension Mother Heart Failure Sister 2 Anesth Problems Neg Hx Seizures Neg Hx Stroke Neg Hx Thyroid Disease Neg Hx Relation Name Status Comments Brother Alive Father Mother Alive Sister 1 Alive Sister 2 Alive Social History Tobacco Use Types Packs/Day Years Used Date Smoking Tobacco: Former Cigarettes 1.5 35 1 - 06/12/2005 Smokeless Tobacco: Never Tobacco Cessation:Counseling Given: Not Answered Alcohol Use Standard Drinks/Week Comments No 0 (1 standard drink = 0.6 oz pur e alcohol) PHQ-2 Answer Date Recorded PHQ-2 Total Score 0 08/26/2020 Sexually Active Control Partners Comments Yes Condom Female Sex and Gender Information Value Date Recorded Sex Assigned at Not on file Legal Sex Male 11:54 PM EDT Gender Identity Not on file Sexual Orientation Not on file Last Filed Vital Signs Vital Sign Reading Time Taken Comments Blood Pressure 124/76 02/05/2024 11:17 AM EDT Pulse 73 02/05/2024 11:17 AM EDT Temperature 36.7 C (98.1 F) 02/05/2024 9:19 AM EDT Respiratory Rate 16 02/05/2024 11:17 AM EDT Oxygen Saturation 96% 02/05/2024 11:17 AM EDT Inhaled Oxygen Concentration - - Weight 84.8 kg (187 lb) 02/05/2024 9:19 AM EDT Height 175.3 cm (5' 9 ) 02/05/2024 9:19 AM EDT Body Mass Index 27.62 02/05/2024 9:19 AM EDT Plan of Treatment Upcoming Encounters Date Type Department Care Team (Late st Contact Info) Description 10/06/2025 2:30 PM EST Office Visit [facility] [address] [place] [address] Anthony Welch MD [address] [place] [address] Health Maintenance Due Date Last Done Comments Hepatitis C Screening 1971 Cologuard 1998 FIT 1998 Sigmoidoscopy 1998 Virtual Colonography 1998 Zoster (2 of 3) 08/10/2014 06/15/2014 Pneumococcal Vaccine 50+ (2 of 2 - PCV20 or PCV21) 06/03/2016 06/03/2015 AAA Screening 2018 Annual Wellness Exam 09/04/2019 09/04/2018 COVID-19 Vaccine ( - 2024- season) 2025 05/06/2023, 04/21/2022, 07/08/2021, Additional history exists Influenza Vaccine (#1) 2025 , 05/06/2023, 05/17/2022, Additional history exists DTaP/TDaP/Td (3 - Td or Tdap) 01/11/2030 01/12/2020, 06/03/2015 Colon Cancer Screening 02/04/2034 Colonoscopy 02/04/2034 02/05/2024 Hepatitis B Vaccine Aged Out No longe r eligible based on patient's age to complete this topic Meningococcal B Vaccine Aged Out No l onger eligible based on patient's age to complete this topic Goals Goal Patient Goal Type Associated Problems Recent Progress Patient-Stated? Author Blood Pressure < 140/90 Blood Pressure 124/76(2023 11:17 AM EDT) No Taryn Rivera RMA Maintain a healthy diet, exercise regularly and maintain an ideal body weight General No Taryn Rivera RMA Stay Tobacco Free Lifestyle No Taryn Rivera RMA Medical Devices Implanted Type Area Linoleum Tile Layer Device Identifier Shelf Expiration Date Model / Serial / Lot Patch Hernia St Ventralex Medium [place] With Strap 6.4 - [id number] Implanted:Qty: 1 on 03/01/2017 by Robert Escoto MD at [facility] N/A: Umbilical CR BARD:DAVOL 11/07/2018 [id number] / / [id number] Lens Intraocular Preloaded 25.5 Diopter - [id number] Implanted:Qty: 1 on 06/13/2017 by Anthony Welch MD at [facility] Right: Eye [facility]:SURG 08/12/2019 AU00T0.255 / [id number] / Lens Intraocular Preloaded 21.5 Diopter - [id number] Implanted:Qty: 1 on 06/27/2017 by Anthony Welch MD at [facility] Left: Eye [employer]:SURG 04/12/2020 AU00T0.215 / [id number] / Procedures Procedure Name Priority Date/Time Associated Diagnosis Comments COLONOSCOPY Routine 02/05/2024 11:01 AM EDT Screening for colon cancer from Last 3 Months or Most Recently Relevant to Health Maintenance Results * COLONOSCOPY (02/05/2024 11:01 AM EDT) Anatomical Region Laterality Modality Endoscopy Narrative 02/05/2024 11:05 AM EDT Table formatting from the original result was not included. Findings Multiple diverticula of moderate severity in the sigmoid colon; no bleeding was identified The mucosa of the colon and terminal ileum was normal. One 8 mm semi-pedunculated polyp in the sigmoid colon; no bleeding was identified; performed hot snare with complete en bloc removal and retrieved specimen. There was no evidence of postpolypectomy bleeding. Recommendation Await pathology results Recommend a high fiber diet. Interval to next Colonoscopy will be based upon histology of polyp(s). Pre-Procedure Diagnosis / Indication Screening for colon cancer Post-Procedure Diagnosis Screening for colon cancer Staff Staff Role Tanesha Mack RN Nurse Mary Mcdaniels, ANAHY FILING CLERK Erwin Alexander MD Performing Provider Medications See Anesthesia Record. Preprocedure A history and physical has been performed, and patient medication allergies have been reviewed. The patient's tolerance of previous anesthesia has been reviewed. The risks and benefits of the procedure and the sedation options and risks were discussed with the patient. All questions were answered and informed consent obtained. ASA 2 - Patient with mild systemic disease Details of the Procedure The patient underwent monitored anesthesia care, which was administered by an anesthesia professional. The patient's blood pressure, heart rate, level of consciousness, oxygen, respirations, ECG and ETCO2 were monitored throughout the procedure. A digital rectal exam was performed. The scope was introduced through the anus and advanced to the terminal ileum. Retroflexion was performed in the rectum. Bowel prep was adequate. The patient experienced no blood loss. The procedure was not difficult. The patient tolerated the procedure well. There were no apparent adverse events. Patient provided education and educated on specific discharge instructions. Patient educated on medications given during the procedure and new medications for discharge. Patient verbalizes understanding of discharge education. Patient stable and awaiting transport for discharge. Events Procedure Events Event Event Time ENDO SCOPE IN TIME 02/05/2024 10:48 AM ENDO CECUM REACHED 02/05/2024 10:52 AM ENDO SCOPE WITHDRAW BEGIN 02/05/2024 10:53 AM ENDO SCOPE OUT TIME 02/05/2024 11:01 AM Specimens ID Type Source Tests Collected by Time 1 : Tissue Large Intestine, Sigmoid Colon [facility] PATHOLOGY ORDER Erwin Alexander MD 02/05/2024 1102 Erwin Alexander MD ENDOSCOPY PROCEDURE OR DERABLES Final Result from Last 3 Months or Most Recently Relevant to Health Maintenance Insurance [email or web address] Member Subscriber Plan / Payer (Ef fective 2019-Present) Name:Mannie Murphy Relation to Subscriber:Self Name:Mannie Murphy Payer ID:Not on file Group ID:Not on file Type:Not on file Address: [place] [id number] MEDICARE PART [facility] [place] [place] [id number] Member Subscriber Plan / Payer (Ef fective 2019-Present) Name:JeffreyMannie Relation to Subscriber:Self Name:JeffreySterlingMannie Dequan Payer ID:Not on file Group ID:Not on file Type:Not on file Address: [address] [place], [place] [id number] [place] [address] Member Subscriber Plan / Payer (Ef fective 2024-Present) Name:Jeffrey Mannie Dequan Relation to Subscriber:Self Name:Jeffrey Mannie Dequan Payer ID:Not on file Group ID:Not on file Type:Not on file Address: [address] [place] [phone] * Guarantor: Mannie Murphy Account Type Relation to Patient Date of Phone Billing Address [place] Personal Family Self 1955 [address] [place] [address] [email or web address] [id number] * Guarantor: Mannie Murphy Account Type Relation to Patient Date of Phone Billing Address [facility] Personal Family Self 1955 [address] [place] [address] [facility] [id number]
--- OUTSIDE RECORDS SUMMARY | 2025-06-23 09:30 | XMS_ITS | Encounter Summary ---
Author Organization Healthcare Address [address] [place] [address] Care Team Providers Care Preschool Associate Teacher Name Role Phone Shahla Reynoso DIGITAL SOLUTION ARCHITECT Primary Care Provider [phone] Encounter Details Date Type Department Care Team (Late st Contact Info) Description 06/18/2025 Orders Only External Location [address] [place] [id number] Provider, External Social History Tobacco Use Types [...] Consult [place] [facility] [address] [place] [address] Jayden Delacruz MD [address] [place] [address] documented as of this encounter [...] on filedocumented in this encounter Care Teams Preschool Associate Teacher Relationship Specialty Start Date End Date Shahla Reynoso APRN [address] [place] [id number] PCP - General 06/19/25 documented as of this encounter
== END 2025-06-23 23:59 | disposition home or self-care (01) ==
LOC: RAD 09:25
PROVIDERS: PCP Nurse Practitioner Family; Visit Provider Nurse Practitioner Family
DX: I65.09 Occlusion and stenosis of unspecified vertebral artery (principal)